=== PATIENT | female | born 1990 | race Caucasian/White ===

== ENCOUNTER 2017-11-24 10:09 | Emergency (ER) | payer OTHER ==
[2017-11-24 11:28] VITALS: BP 123/70
--- OUTSIDE RECORDS SUMMARY | 2017-11-24 11:38 | XMS REPORT ---
:1990 External Reference #:[id number] Author Organization [facility] [employer] Address [address] [place] [address] Phone [phone] Care Team Providers Name Role Phone Cara Guzmán NP Care Team Information Pasta Maker Unavailable Low Amado PA Primary Care Physician Unavailable Payers Type Date Identification Numbers Payment Provider Subscriber Commercial Policy Number: [id number] [employer]/Rohan Esme Morales PayID: [id number] [facility] [place] [address] Problems Description No Information Family History Date Family Member(s) Problem(s) Comments Father Non Contributory Mother Non Contributory Social History Type Date Description Comments Cigarette Use Never Smoked Cigarettes ETOH Use Rare Use Of Alcohol Recreational Drug Use Never Used Drugs Allergies, Adverse Reactions, Alerts Date Description Reaction Status Severity Comments 01/04/2015 NKDA active Medications Medication Date Status Form Strength Qnty SIG Indications Ordering Provider Fluticasone 12/03/ Active Suspension 50mcg/Act 32gm 2 sprays Yaakov, Propionate 2016 both Alverto, nostrils M.D. every day No Active 12/03/ Hx Unknown Medications 2016 - 2016 Dexamethasone 12/03/ Hx Tablets 4mg 5tabs one tab Yaakov 2017 - daily for Alverto, 01/13/ 5 days M.D. 2016 Azithromycin 12/03/ Hx Tablets 500mg 5tabs 1 by Yaakov 2017 - mouth Al[place], 01/13/ every day M.D. 2016 No Active 03/28/ Hx Unknown Medications 2015 - 2015 Ipratropium 03/28/ Hx Solution 0.03% QS 2 sprays Yaakov, [place] 2015 - each side Al[place], 12/02/ nostril M.D. 2017 everyday 2 months No Active 12/11/ Hx Unknown Medications 2015 - 2015 Fluticasone 12/11/ Hx Suspension 50mcg/Act 1units 2 sprays Yaakov, Propionate 2016 - each [place], 03/27/ nostril M.D. 2016 every day Percocet 07/21/ Hx Tablets 5-325mg 30tabs 2 by Yaakov, 2014 - mouth Al[place], 07/26/ four M.D. 2015 times a day as needed for pain Amoxicillin 06/30/ Hx Tablets 875mg 14tabs twice a Yaakov, 2014 - day 1 Al[place], 07/26/ week M.D. 2014 Azelastine HCL 03/08/ Hx Solution 137mcg/Spr 3units 2 spays Yaakov, 2014 - ay everyday Al[place], 08/24/ both M.D. 2014 nostrils Fluticasone 01/04/ Hx Suspension 50mcg/Act 3units 2 sprays Seun Nuno 2014 - both [place], 06/29/ nostrils M.D. 2014 every day Claritin / Hx Tablets 10mg 1 by Unknown 0000 - mouth 07/19/ every day 2014 SMZ-TMP DS / Hx Tablets 800-160mg bid for 3 Unknown 0000 - days 2014 Vitamin D / Hx Unknown 0000 - 2015 / Hx Tablets Unknown Vitamin 0000 - 2015 Vital Signs Date Vital Result Comment 10/31/2017 Weight 172.00 lb Height 62 inches 5'2" BMI (Body Mass Index) 31.5 kg/m2 BP Systolic 118 mmHg BP Diastolic 77 mmHg Heart Rate 110 /min O2 % BldC Oximetry 97 % Body Temperature 97.4 F Pain Level 0 04/15/2017 Weight 168.00 lb Height 62 inches 5'2" BMI (Body Mass Index) 30.7 kg/m2 BP Systolic 118 mmHg BP Diastolic 76 mmHg Heart Rate 82 /min O2 % BldC Oximetry 98 % Body Temperature 99.6 F 01/14/2017 Weight 168.00 lb Height 62 inches 5'2" BMI (Body Mass Index) 30.7 kg/m2 BP Systolic 112 mmHg BP Diastolic 74 mmHg Heart Rate 81 /min O2 % BldC Oximetry 98 % Body Temperature 97.9 F 12/03/2016 Weight 167.00 lb Height 62 inches 5'2" BMI (Body Mass Index) 30.5 kg/m2 BP Systolic 116 mmHg BP Diastolic 74 mmHg Heart Rate 77 /min O2 % BldC Oximetry 99 % Body Temperature 98.1 F 03/28/2016 Weight 157.00 lb Height 62 inches 5'2" BMI (Body Mass Index) 28.7 kg/m2 BP Systolic 112 mmHg BP Diastolic 72 mmHg Heart Rate 79 /min O2 % BldC Oximetry 98 % Body Temperature 98.3 F 12/11/2015 Weight 156.38 lb Height 62 inches 5'2" BMI (Body Mass Index) 28.6 kg/m2 BP Systolic 124 mmHg BP Diastolic 76 mmHg Heart Rate 77 /min O2 % BldC Oximetry 98 % Body Temperature 98.2 F 09/04/2015 Weight 151.00 lb Height 62 inches 5'2" BMI (Body Mass Index) 27.6 kg/m2 BP Systolic 122 mmHg BP Diastolic 76 mmHg Heart Rate 62 /min O2 % BldC Oximetry 99 % Body Temperature 99.1 F 07/27/2015 Weight 148.00 lb Height 62 inches 5'2" BMI (Body Mass Index) 27.1 kg/m2 BP Systolic 118 mmHg BP Diastolic 78 mmHg Body Temperature 98.8 F Pain Level 0 06/30/2015 Weight 146.00 lb Height 62 inches 5'2" BMI (Body Mass Index) 26.7 kg/m2 BP Systolic 112 mmHg BP Diastolic 66 mmHg Heart Rate 73 /min O2 % BldC Oximetry 97 % Body Temperature 97.5 F 06/02/2015 Weight 145.00 lb Height 62 inches 5'2" BMI (Body Mass Index) 26.5 kg/m2 Body Temperature 98.2 F 03/08/2015 Body Temperature 98.4 F 02/15/2015 Weight 155.00 lb Height 62 inches 5'2" BMI (Body Mass Index) 28.3 kg/m2 BP Systolic 108 mmHg BP Diastolic 72 mmHg Heart Rate 71 /min O2 % BldC Oximetry 99 % Body Temperature 97.6 F 01/04/2015 Weight 155.00 lb Height 62 inches 5'2" BMI (Body Mass Index) 28.3 kg/m2 BP Systolic 110 mmHg BP Diastolic 66 mmHg Heart Rate 70 /min O2 % BldC Oximetry 98 % Body Temperature 98.4 F Results Test Date Test Result H/L Range Note Allergens,Zone 1 03/08/2015 mRast Class (Text Only) See Note 1 D Pteronyssinus <0.10 Hbqmk9uE/L D Farinae Mite <0.10 Jmjhc7zI/L Cat Hair/Dander <0.10 Djklg8hG/L Dog Hair/Dander <0.10 Bwwrd8mL/L Bluegrass,[place] <0.10 Klixi6gP/L Bermuda Grass <0.10 Bpite1fW/L Bahia Grass <0.10 Tpqbv1qL/L Cockroach,Tongan <0.10 Lpvvr6oS/L Penicillium Not <0.10 Kzdsv8kW/L Cladosporium Herbarum <0.10 Avgkr0mZ/L Apergillis Fumigatus Ige <0.10 Omvys7vX/L Mucor Racemosus <0.10 Cbfre2uN/L Alternaria Tenuis <0.10 Dbidt0aS/L Stemphylium Bot <0.10 Awgjy4hM/L Birch,White <0.10 Tldex4yY/L [place],White <0.10 Bzgmd6fO/L Elm,Tongan (White) <0.10 Zmwcz0gF/L Nam,White <0.10 Dauwm5cC/L Hazelnut Tree <0.10 Irtac4mE/L Kerr,White <0.10 Anukn5cM/L [place],White <0.10 Wwpio2kD/L Russell,[place] <0.10 Faapv1aW/L Ragweed,Short/ <0.10 Emulr1uX/L Mugwort <0.10 Hlemx5xD/L Plantain,Belarusian <0.10 Jcltz6cW/L Pigweed,Rough <0.10 Ogzno6iZ/L Sheep Elaine (DO <0.10 Uhxqc3xO/L Nettle <0.10 Efxyn8qT/L Maple/[place] Ige T001 <0.10 Axfbr7mD/L 2 Laboratory test finding 03/08/2015 Immunoglobulin E,Total 7 IU/mL 0-100 TSH+Free T4 02/15/2015 Thyroid Stim Hormone 1.16 uIU/mL 0.36-3.74 Free T4 1.11 ng/dL 0.76-1.46 1 Levels of Specific IgE Class Description of Class ----- < 0.10 0 Negative 0.10 - 0.31 0/I Equivocal/Low 0.32 - 0.55 I Low 0.56 - 1.40 II Moderate 1.41 - 3.90 III High 3.91 - 19.00 IV Very High 19.01 - 100.00 V Very High >100.00 Very High 2 Test(s) 675015-S143-BbB Cockroach, Tongan; 276606- I028-AoB Dhaval Vergara were developed and had performance characteristics determined by [facility]. These tests have not been cleared or approved by the U.S. Food and Drug Administration. The FDA has determined that such clearance or approval is not necessary. These tests are used for clinical purposes. These should not be regarded as investigational or for research. Performed at: [address] [id number] Sales Associate Fishing: Alejandro Drummond MD, Phone: [phone] Performed at: [facility] [id number] Sales Associate Fishing: Carolyne Lester MD, Phone: [phone] Procedures Date CPT Code Description Status 04/15/2017 41458 Nasal Endoscopy, Diag. Completed 01/14/2017 91914 Nasal Endoscopy, Diag. Completed 03/28/2016 68640 Tympanometry Completed 03/28/2016 82076 Tympanometry Completed 09/04/2015 50069 Tympanometry Completed 09/04/2015 34325 Tympanometry Completed 09/04/2015 83174 Audiometry, Comprehensive Completed 09/04/2015 89836 Audiometry, Comprehensive Completed 07/21/2015 73821 Submucous Resect.Turb.Par Or Comp Completed 07/21/2015 17139 Septoplasty Completed 07/21/2015 67355 Nasal/Sinus Endosc.Surg.W.Ethmoid Completed 07/21/2015 88968 Nasal/Sinus Endosc.W.Max.Antrost. Completed 07/21/2015 34171 Nasal/Sinus Endosc.W.Explor. Completed 07/21/2015 30421 Nasal/Sinus Endoscopy Surg/Sphen. Completed 07/21/2015 46890 Stereotactic Computer-Assisted, Cranial, Extradural Completed 01/04/2015 09993 Tympanometry Completed 01/04/2015 25307 Nasal Endoscopy, Diag. Completed Encounters Type Date Location Provider CPT E/M Dx Office Visit 04/15/2017 5:45p Main Office Alverto Nuno M.D. 07315 J31.0 H69.83 Office Visit 01/14/2017 5:00p Main Office Alverto Nuno M.D. 52265 J31.0 Office Visit 12/03/2016 2:00p Main Office Alverto Nuno M.D. 38755 J01.90 H69.83 Office Visit 03/28/2016 4:00p Main Office Alverto Nuno M.D. 48170 H69.83 H93.13 Office Visit 12/11/2015 4:00p [place] [address] H93.13 J31.0 Office Visit 09/04/2015 3:45p [place] [address] H93.13 J31.0 Office Visit 06/30/2015 9:30a Main Office Alverto Nuno M.D. 99683 473.9 472.0 381.81 Office Visit 06/02/2015 1:45p Main Office Alverto Nuno M.D. 11289 473.9 472.0 381.81 470 Office Visit 03/08/2015 4:45p Main Office Alverto Nuno M.D. 23210 473.9 472.0 381.81 Office Visit 02/15/2015 5:00p Main Office Alverto Nuno M.D. 67085 473.9 472.0 381.81 246.9 Office Visit 01/04/2015 4:45p Main Office Alverto Nuno M.D. 51222 381.81 473.9 472.0 Plan of Care No Information Available
--- NOTE | 2017-11-24 11:47 | UC ---
Respiratory Complaint HPI - HPI Summary HPI Summary: 26 year old female presents with complains of sinus congestion and pressure. - History of Current Complaint Chief Complaint: UCRespiratory Stated Complaint: UPPER RESPIRATORY Time Seen by Provider: 11/24/17 11:47 Hx Obtained From: Patient Hx Last Menstrual Period: "I don't know if I had one last month" Onset/Duration: Sudden Onset Severity Initially: Moderate Severity Currently: Moderate Pain Scale Used: 0-10 Numeric - 5 Character: Cough: Nonproductive - Allergies/Home Medications Allergies/Adverse Reactions: Allergies Allergy/AdvReac Type Severity Reaction Status Date / Time No Known Allergies Allergy Verified 11/24/17 11:22 PMH/Surg Hx/FS Hx/Imm Hx - Surgical History Surgical History: Yes Surgery Procedure, Year, and Place: [facility], 07/21/15, [place] (Dr. Nuno) - Social History Alcohol Use: None Substance Use Type: None Smoking Status (MU): Never Smoked Tobacco - Immunization History Most Recent Influenza Vaccination: no 2016 Review of Systems Constitutional: Negative Skin: Negative Eyes: Negative ENT: Nasal Discharge, Sinus Congestion, Sinus Pain/Tenderness Respiratory: Negative Cardiovascular: Negative Gastrointestinal: Negative Genitourinary: Negative Motor: Negative Neurovascular: Negative Musculoskeletal: Negative Neurological: Negative Psychological: Negative All Other Systems Reviewed And Are Negative: Yes Physical Exam Triage Information Reviewed: Yes Vital Signs: Initial Vital Signs Temp 37.1 C 11/24/17 11:23 Pulse 109 11/24/17 11:23 Resp 28 11/24/17 11:23 BP 123/70 11/24/17 11:23 Pulse Ox 98 11/24/17 11:23 Vital Signs Reviewed: Yes Eye Exam: Normal ENT: Positive: Nasal congestion, Nasal drainage, Sinus tenderness Dental Exam: Normal Neck exam: Normal Neck: Positive: 1 Respiratory Exam: Normal Cardiovascular Exam: Normal Abdominal Exam: Normal Musculoskeletal Exam: Normal Neurological Exam: Normal Psychological Exam: Normal Skin Exam: Normal UC Diagnostic Evaluation - Laboratory O2 Sat by Pulse Oximetry: 98 Respiratory Course/Dx - Differential Dx/Diagnosis Provider Diagnoses: sinus congestion Discharge - Discharge Plan Condition: Stable Disposition: HOME Prescriptions: Amoxicillin PO (*) [Amoxicillin 500 MG CAP*] 500 mg PO TID #30 cap Patient Education Materials: Sinusitis (ED) Forms: *Work Release Referrals: Aneudy PARK,Low Zarate [Primary Care Provider] -
== END 2017-11-24 12:07 | disposition home or self-care (01) ==
LOC: UCCORT 10:09
DX: R09.81 Nasal congestion (principal)
CPT/HCPCS: 99212; G0463

== ENCOUNTER 2018-10-16 09:18 | Emergency (ER) | payer OTHER ==
[2018-10-16 11:09] VITALS: BP 116/62
--- NOTE | 2018-10-16 11:19 | UC ---
UC General HPI - HPI Summary HPI Summary: L BREAST REDNESS, SWELLING AND TENDERNESS WITH CHILLS X 2 DAYS. CURRENTLY BREAST FEEDING. HX SAME BUT NEVER THIS BAD AND RESOLVED WITH NO ANTIBIOTICS. - History of Current Complaint Chief Complaint: MICHAELkin Stated Complaint: SKIN COMPLAINT,BODY CHILLS Time Seen by Provider: 10/16/18 11:13 Hx Obtained From: Patient Hx Last Menstrual Period: "I don't know if I had one last month" Onset/Duration: Gradual Onset Timing: Constant Pain Intensity: 6 Associated Signs & Symptoms: Positive: Fever - Allergy/Home Medications Allergies/Adverse Reactions: Allergies Allergy/AdvReac Type Severity Reaction Status Date / Time No Known Allergies Allergy Verified 10/16/18 11:10 PMH/Surg Hx/FS Hx/Imm Hx Previously Healthy: Yes - Surgical History Surgical History: Yes Surgery Procedure, Year, and Place: [facility], 07/21/15, [place] (Dr. Nuno) - Family History Known Family History: Positive: Non-Contributory - Social History Lives: With Family Alcohol Use: None Substance Use Type: None Smoking Status (MU): Never Smoked Tobacco - Immunization History Most Recent Influenza Vaccination: no 2017 Vaccination Up to Date: Yes Review of Systems All Other Systems Reviewed And Are Negative: Yes Constitutional: Positive: Chills Skin: Positive: Rash - L BREAST Eyes: Positive: Negative ENT: Positive: Negative Respiratory: Positive: Negative Cardiovascular: Positive: Negative Gastrointestinal: Positive: Negative Genitourinary: Positive: Negative Motor: Positive: Negative Neurovascular: Positive: Negative Musculoskeletal: Positive: Negative Neurological: Positive: Negative Psychological: Positive: Negative Physical Exam Triage Information Reviewed: Yes Appearance: Well-Appearing Vital Signs: Initial Vital Signs Temp 98.8 F 10/16/18 11:06 Pulse 102 10/16/18 11:06 Resp 16 10/16/18 11:06 BP 116/62 10/16/18 11:06 Pulse Ox 100 10/16/18 11:06 Vital Signs Reviewed: Yes Eyes: Positive: Conjunctiva Clear ENT: Positive: Pharynx normal, TMs normal. Negative: Nasal congestion, Nasal drainage Neck: Positive: Supple, Nontender, No Lymphadenopathy Respiratory: Positive: Lungs clear, Normal breath sounds Cardiovascular: Positive: RRR, No Murmur. Negative: Tachycardia Abdomen Description: Positive: Nontender, No Organomegaly, Soft Bowel Sounds: Positive: Present Musculoskeletal: Positive: ROM Intact Neurological: Positive: Alert Psychological: Positive: Age Appropriate Behavior Skin Exam: Normal, Other - L BREAT: upper central breast with pink, warmth, tenderness and mild induration c/w mastitis. Course/Dx - Course Course Of Treatment: non toxic. exam c/w mastitis. no hx mrsa thus will tx augmentin. 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 - Differential Dx - Multi-Symptom Provider Diagnoses: mastitis l breast Discharge - Sign-Out/Discharge Documenting (check all that apply): Patient Departure All imaging exams completed and their final reports reviewed: No Studies - Discharge Plan Condition: Stable Disposition: HOME Prescriptions: Amoxicillin/Clavulanate TAB* [Augmentin TAB 875*] 875 mg PO BID 10 Days #20 tab Patient Education Materials: Mastitis (ED) Referrals: Carolyn Belle-MD Tamela [Medical Doctor] - 3 Days - Billing Disposition and Condition Condition: STABLE Disposition: Home - Attestation Statements Provider Attestation: Per institutional requirements, I have reviewed the chart, however, I was not consulted specifically or made aware of this patient by the midlevel provider. I did not personally evaluate, interact with , or disposition this patient.
== END 2018-10-16 11:27 | disposition home or self-care (01) ==
LOC: UCCORT 09:18
DX: N61.0 Mastitis without abscess (principal)
CPT/HCPCS: 99212; G0463